=== PATIENT | female | born 1990 | race Caucasian/White ===

== ENCOUNTER 2017-09-28 13:25 | Emergency (ER) | payer OTHER ==
[2017-09-28] MEDS: IPRATROPIUM (NEB) 0.5 MG/2.5 ML AMP HHN (17:21)
[2017-09-28] MEDS: ALBUTEROL 0.083% (NEB) 2.5 MG/3 ML AMP HHN (17:21)
== END 2017-09-28 18:20 | disposition home or self-care (01) ==
LOC: FTE 13:25
DX: O21.9 Vomiting of pregnancy, unspecified (principal); R05 Cough; R50.9 Fever, unspecified; R06.02 Shortness of breath; O24.112 Pre-existing type 2 diabetes mellitus, in pregnancy, second trimester; O99.512 Diseases of the respiratory system complicating pregnancy, second trimester; J45.909 Unspecified asthma, uncomplicated; Z3A.24 24 weeks gestation of pregnancy; Z79.84 Long term (current) use of oral hypoglycemic drugs
CPT/HCPCS: 94664; 99284-25

== ENCOUNTER 2018-01-13 13:16 | Inpatient (IN) | payer OTHER ==
[2018-01-13] MEDS ORDERED: IBUPROFEN 600 MG TAB PO (13:30)
[2018-01-13] MEDS ORDERED: METHYLERGONOVINE 0.2 MG INJ IM (13:30)
[2018-01-13] MEDS ORDERED: OXYTOCIN 30 UNITS/LR 500 ML IV (13:30)
[2018-01-13] MEDS: LACTATED RINGER'S 1,000 ML IV ×2 (14:12→23:35)
[2018-01-13 14:14] LABS: ADD MAN DIFF? NO
[2018-01-13 14:16] LABS: WHITE BLOOD COUNT 6.2 10^3/ul (4.8-10.8)
[2018-01-13 14:17] LABS: BASOPHILS % 0.3 % (0.0-2.0); EOSINOPHILS # 0.1 10^3/ul (0.0-0.5); HEMOGLOBIN 10.7 g/dl (12.0-16.0); LYMPHOCYTES # 1.2 10^3/ul (0.8-2.9); LYMPHOCYTES % 20.1 % (15.0-51.0); MEAN CORPUSCULAR HEMOGLOBIN 29.6 pg (29.0-33.0); MEAN CORPUSCULAR HGB CONC 34.5 g/dl (32.0-37.0); MEAN CORPUSCULAR VOLUME 85.9 fl (82.0-101.0); MEAN PLATELET VOLUME 10.5 fl (7.4-10.4); MONOCYTE # 0.6 10^3/ul (0.3-0.9); MONOCYTES % 9.4 % (0.0-11.0); NEUTROPHIL # 4.3 10^3/ul (1.6-7.5); NEUTROPHILS % 68.7 % (39.0-77.0); PLATELET COUNT 253 10^3/UL (140-415); RED BLOOD COUNT 3.61 10^6/ul (4.20-5.40); RED CELL DISTRIBUTION WIDTH 13.6 % (11.5-14.5)
[2018-01-13 14:36] LABS: INR 0.88; PT RATIO 0.9
[2018-01-13 14:52] LABS: GLUCOSE 103 mg/dl (70-220)
[2018-01-13 16:31] LABS: HEPATITIS B SURFACE ANTIGEN NEGATIVE (NEGATIVE)
[2018-01-13] MEDS: DINOPROSTONE 10 MG VAG SUPP VAG (16:37)
[2018-01-13 17:17] LABS: RAPID PLASMA REAGIN NONREACTIVE (NR)
[2018-01-13] MEDS ORDERED: PROAIR HFA INHALER PO (20:30)
[2018-01-14] MEDS: OXYTOCIN 30 UNITS/LR 500 ML IV ×2 (01:19→22:14)
[2018-01-14] MEDS: DEXTROSE 5%-LR 1,000 ML IV ×3 (01:53→13:49)
[2018-01-14] MEDS: LACTATED RINGER'S 1,000 ML IV ×4 (01:53→22:39)
[2018-01-14] MEDS: ACETAMINOPHEN 500 MG TAB PO (04:39)
[2018-01-14 05:27] LABS: ADD MAN DIFF? NO
[2018-01-14 05:30] LABS: BASOPHILS % 0.2 % (0.0-2.0); EOSINOPHILS # 0.1 10^3/ul (0.0-0.5); EOSINOPHILS % 0.7 % (0.0-7.0); HEMATOCRIT 31.7 % (37.0-47.0); LYMPHOCYTES # 1.7 10^3/ul (0.8-2.9); LYMPHOCYTES % 20.3 % (15.0-51.0); MEAN CORPUSCULAR HGB CONC 34.7 g/dl (32.0-37.0); MEAN CORPUSCULAR VOLUME 86.4 fl (82.0-101.0); MEAN PLATELET VOLUME 10.4 fl (7.4-10.4); MONOCYTE # 0.7 10^3/ul (0.3-0.9); MONOCYTES % 8.4 % (0.0-11.0); NEUTROPHIL # 5.8 10^3/ul (1.6-7.5); NEUTROPHILS % 69.9 % (39.0-77.0); PLATELET COUNT 241 10^3/UL (140-415); RED BLOOD COUNT 3.67 10^6/ul (4.20-5.40); RED CELL DISTRIBUTION WIDTH 13.8 % (11.5-14.5)
[2018-01-14 05:30] LABS: WHITE BLOOD COUNT 8.3 10^3/ul (4.8-10.8)
[2018-01-14 05:49] LABS: INR 0.87; PARTIAL THROMBOPLASTIN TIME 24.4 Sec (25.0-35.0); PROTIME 11.9 Sec (11.9-14.9); PT RATIO 0.9
[2018-01-14 05:57] LABS: ALANINE AMINOTRANSFERASE 26 IU/L (13-69); ALBUMIN 3.1 g/dl (3.3-4.9); ALBUMIN/GLOBULIN RATIO 0.91; ALKALINE PHOSPHATASE 201 IU/L (42-121); ANION GAP 13 (8-16); ASPARTATE AMINO TRANSFERASE 21 IU/L (15-46); BILIRUBIN,INDIRECT 0.3 mg/dl (0-1.1); BILIRUBIN,TOTAL 0.3 mg/dl (0.2-1.3); BLOOD UREA NITROGEN 12 mg/dl (7-20); CALCIUM 8.9 mg/dl (8.4-10.2); CARBON DIOXIDE 18 mmol/L (21-31); CHLORIDE 111 mmol/L (97-110); CREATININE 0.48 mg/dl (0.44-1.00); GLUCOSE 87 mg/dl (70-220); POTASSIUM 3.9 mmol/L (3.5-5.1); SODIUM 138 mmol/L (135-144); TOTAL PROTEIN 6.5 g/dl (6.1-8.1)
[2018-01-14 06:41] LABS: ADD UMIC YES; UR ASCORBIC ACID NEGATIVE (NEGATIVE); UR BILIRUBIN (Dip) NEGATIVE (NEGATIVE); UR BLOOD (Dip) NEGATIVE (NEGATIVE); UR CLARITY CLEAR (CLEAR); UR COLOR YELLOW (YELLOW); UR GLUCOSE (Dip) NEGATIVE (NEGATIVE); UR KETONES (Dip) NEGATIVE (NEGATIVE); UR LEUKOCYTE ESTERASE (Dip) NEGATIVE Leu/ul (NEGATIVE); UR NITRITE (Dip) NEGATIVE (NEGATIVE); UR RBC 0 /HPF (0-5); UR SPECIFIC GRAVITY (Dip) 1.019 (1.003-1.030); UR SQUAMOUS EPITHELIAL CELL FEW /HPF (FEW); UR TOTAL PROTEIN (Dip) 2+ mg/dl (NEGATIVE); UR UROBILINOGEN (Dip) NEGATIVE (NEGATIVE); UR WBC 1 /HPF (0-5)
[2018-01-14 08:07] LABS: FIBRIN SPLIT PRODUCT <10 ug/ml (<10)
[2018-01-14] MEDS ORDERED: FENTAnyl 2MCG/ML-ROPIV 0.2% 100 ML (10:52)
[2018-01-14] MEDS ORDERED: NALOXONE (0.4 MG/ML) INJ IV ×4 (13:00→20:00)
[2018-01-14] MEDS ORDERED: DIPHENHYDRAMINE 50 MG INJ IV ×4 (13:00→20:00)
[2018-01-14] MEDS ORDERED: ONDANSETRON 4 MG INJ IV (13:00)
[2018-01-14] MEDS: FENTAnyl 2MCG/ML-ROPIV 0.2% 100 ML BAG EPI ×3 (13:50→22:19)
[2018-01-14] MEDS: ONDANSETRON 4 MG INJ IV (18:12)
[2018-01-14] MEDS ORDERED: morphine 2 MG INJ IV (20:00)
[2018-01-14] MEDS ORDERED: KETOROLAC 30 MG INJ IV (20:00)
[2018-01-14] MEDS: MAGNESIUM SULFATE 4 GM/100 ML 100 ML IVPB ×2 (20:26)
[2018-01-14] MEDS: MAGNESIUM SULFATE 20 GM/500 ML 500 ML IV (20:57)
[2018-01-15] MEDS: MINERAL OIL LIGHT 10 ML VIAL TOP
[2018-01-15] MEDS: ONDANSETRON 4 MG INJ IV (00:41)
[2018-01-15 00:59] LABS: MAGNESIUM 4.3 mg/dl (1.7-2.5)
[2018-01-15] MEDS: DEXTROSE 5%-LR 1,000 ML IV (01:02)
[2018-01-15] MEDS: FENTAnyl 2MCG/ML-ROPIV 0.2% 100 ML BAG EPI ×4 (03:04→15:46)
[2018-01-15] MEDS: PROAIR HFA INHALER PO (04:22)
[2018-01-15] MEDS: BUTORPHANOL 2 MG INJ IV ×2 (04:42→19:29)
[2018-01-15] MEDS: MAGNESIUM SULFATE 20 GM/500 ML 500 ML IV ×2 (06:26→16:14)
[2018-01-15 07:45] LABS: MAGNESIUM 5.2 mg/dl (1.7-2.5)
[2018-01-15] MEDS ORDERED: AMPICILLIN 2 GM/NS (PMX) 100 ML (08:24)
[2018-01-15] MEDS: AMPICILLIN 2 GM/NS (PMX) 100 ML IV (08:30)
[2018-01-15 12:38] LABS: MAGNESIUM 5.8 mg/dl (1.7-2.5)
[2018-01-15] MEDS: AMPICILLIN 1 GM/NS (PMX) 50 ML IV ×2 (13:19→17:03)
[2018-01-15] MEDS: LACTATED RINGER'S 1,000 ML IV (17:04)
[2018-01-15] MEDS: MISOPROSTOL 200 MCG TAB PR (19:24)
[2018-01-15] MEDS: OXYTOCIN 30 UNITS/LR 500 ML IV ×3 (19:27→20:00)
[2018-01-15] MEDS: LIDOCAINE 1% (MPF) 30 ML INJ INJ ×2 (19:28)
[2018-01-15] MEDS: CARBOPROST 250 MCG INJ IM (19:40)
[2018-01-15] MEDS ORDERED: INSULIN REGULAR, HUMAN 100 UNIT/1 ML 3ML VIAL IVP (19:44)
[2018-01-15] MEDS ORDERED: DEXTROSE 50% 50 ML SYRINGE IV (20:00)
[2018-01-15] MEDS: CEFAZOLIN 2 GM/50 ML (PMX) 50 ML IVPB (20:13)
[2018-01-15] MEDS: INSULIN REGULAR, HUMAN 100 UNIT/1 ML 3ML VIAL SC (20:35)
[2018-01-15] MEDS ORDERED: OXYCODONE/ASPIRIN (4.88/325) TAB PO ×2 (22:30)
[2018-01-15] MEDS ORDERED: WITCH HAZEL/GLYCERIN PAD PR (22:30)
[2018-01-15] MEDS ORDERED: ZOLPIDEM 5 MG TAB PO (22:30)
[2018-01-15] MEDS ORDERED: LANOLIN 7 GM TUBE TOP (22:30)
[2018-01-15] MEDS ORDERED: OXYTOCIN 30 UNITS/LR 500 ML IV (22:30)
[2018-01-15] MEDS ORDERED: METHYLERGONOVINE 0.2 MG INJ IM (22:30)
[2018-01-15] MEDS ORDERED: CARBOPROST 250 MCG INJ IM (22:30)
[2018-01-15] MEDS ORDERED: BENZOCAINE 20% 56 ML SPRAY TOP (22:30)
[2018-01-15] MEDS ORDERED: MISOPROSTOL 200 MCG TAB PR (22:30)
[2018-01-15] MEDS: ACETAMINOPHEN 325 MG TAB PO (22:41)
[2018-01-15] MEDS ORDERED: ACETAMINOPHEN 325 MG TAB PO (23:00)
[2018-01-15 23:58] LABS: WHITE BLOOD COUNT 25.7 10^3/ul (4.8-10.8)
[2018-01-15 23:58] LABS: ABNORMAL IP MESSAGE 1; HEMATOCRIT 26.3 % (37.0-47.0); MEAN CORPUSCULAR HEMOGLOBIN 29.9 pg (29.0-33.0); MEAN CORPUSCULAR HGB CONC 34.2 g/dl (32.0-37.0); MEAN CORPUSCULAR VOLUME 87.4 fl (82.0-101.0); MEAN PLATELET VOLUME 10.1 fl (7.4-10.4); PLATELET COUNT 237 10^3/UL (140-415); RED BLOOD COUNT 3.01 10^6/ul (4.20-5.40); RED CELL DISTRIBUTION WIDTH 13.9 % (11.5-14.5)
[2018-01-16 00:03] LABS: ADD MAN DIFF? YES; PATH REVIEW? YES; POSITIVE DIFF @See below
[2018-01-16 00:20] LABS: MAGNESIUM 4.3 mg/dl (1.7-2.5)
[2018-01-16] MEDS: IBUPROFEN 600 MG TAB PO ×5 (00:22→23:46)
[2018-01-16] MEDS: INSULIN REGULAR, HUMAN 100 UNIT/1 ML 3ML VIAL SC (00:27)
[2018-01-16] MEDS: LACTATED RINGER'S 1,000 ML IV ×2 (00:56→11:11)
[2018-01-16] MEDS: MAGNESIUM SULFATE 20 GM/500 ML 500 ML IV (00:59)
[2018-01-16] MEDS ORDERED: D5W IVPB (01:00)
[2018-01-16] MEDS ORDERED: MAGNESIUM SULFATE IVPB (01:00)
[2018-01-16 01:19] LABS: BAND NEUTROPHILS #M 4.1 10^3/ul (0.0-0.6); BAND NEUTROPHILS % (M) 16 % (0-4); LYMPHOCYTES #M 0.5 10^3/ul (0.8-2.9); LYMPHOCYTES % (M) 2 % (15-51); MONOCYTES % (M) 8 % (0-11); PLATELET ESTIMATE NORMAL; SEG NEUT #M 20.1 10^3/ul (1.6-7.5); SEGMENTED NEUTROPHILS (M) % 74 % (39-77)
[2018-01-16] MEDS ORDERED: ACCU-CHEK XX ×2 (02:00)
[2018-01-16] MEDS: CEFAZOLIN 2 GM/50 ML (PMX) 50 ML IVPB ×3 (03:45→20:07)
[2018-01-16] MEDS ORDERED: CEFAZOLIN 2 GM/50 ML (PMX) 50 ML IVPB (04:00)
[2018-01-16] MEDS: ACCU-CHEK XX ×4 (08:26→20:08)
[2018-01-16 08:41] LABS: ADD MAN DIFF? NO
[2018-01-16 08:46] LABS: ABNORMAL IP MESSAGE 1; BASOPHILS % 0.2 % (0.0-2.0); EOSINOPHILS % 0.1 % (0.0-7.0); HEMATOCRIT 21.7 % (37.0-47.0); HEMOGLOBIN 7.4 g/dl (12.0-16.0); LYMPHOCYTES % 10.8 % (15.0-51.0); MEAN CORPUSCULAR HEMOGLOBIN 29.7 pg (29.0-33.0); MEAN CORPUSCULAR HGB CONC 34.1 g/dl (32.0-37.0); MEAN CORPUSCULAR VOLUME 87.1 fl (82.0-101.0); MEAN PLATELET VOLUME 10.6 fl (7.4-10.4); NEUTROPHIL # 14.1 10^3/ul (1.6-7.5); NEUTROPHILS % 77.5 % (39.0-77.0); PLATELET COUNT 214 10^3/UL (140-415); RED BLOOD COUNT 2.49 10^6/ul (4.20-5.40); RED CELL DISTRIBUTION WIDTH 14.2 % (11.5-14.5)
[2018-01-16 08:46] LABS: WHITE BLOOD COUNT 18.2 10^3/ul (4.8-10.8)
[2018-01-16 08:48] LABS: POSITIVE DIFF @See below
[2018-01-16] MEDS: SENNA/DOCUSATE NA (8.6MG/50MG) TAB PO ×2 (09:03→21:56)
[2018-01-16 09:04] LABS: MAGNESIUM 4.3 mg/dl (1.7-2.5)
[2018-01-16 12:59] LABS: MAGNESIUM 4.2 mg/dl (1.7-2.5)
[2018-01-16 19:13] LABS: MAGNESIUM 4.1 mg/dl (1.7-2.5)
[2018-01-16] MEDS: MAGNESIUM HYDROXIDE 30ML CUP PO (21:56)
[2018-01-17] MEDS: CEFAZOLIN 2 GM/50 ML (PMX) 50 ML IVPB ×2 (04:24→12:00)
[2018-01-17] MEDS: IBUPROFEN 600 MG TAB PO ×2 (06:00→12:00)
[2018-01-17 08:34] LABS: MAGNESIUM 2.7 mg/dl (1.7-2.5)
[2018-01-17] MEDS: SENNA/DOCUSATE NA (8.6MG/50MG) TAB PO (09:00)
[2018-01-17] MEDS: DIPHTH/TET/ACEL PERTUSS (ADULT) 0.5 ML VIAL IM* (09:00)
[2018-01-17] MEDS: MAGNESIUM HYDROXIDE 30ML CUP PO (09:00)
[2018-01-17] MEDS: ACCU-CHEK XX ×3 (09:16→13:50)
[2018-01-17 12:23] LABS: MAGNESIUM 2.5 mg/dl (1.7-2.5)
== END 2018-01-17 18:50 | disposition home or self-care (01) | DRG 775 ==
LOC: L-D 13:16 → PP1 01-15 22:54
PROVIDERS: Obstetrics & Gynecology
PROC: 10E0XZZ Delivery of Products of Conception, External Approach (ICD-10-PCS; principal; 2018-01-14)
PROC: 0DQR0ZZ Repair Anal Sphincter, Open Approach (ICD-10-PCS; 2018-01-14)
PROC: 3E033VJ Introduction of Other Hormone into Peripheral Vein, Percutaneous Approach (ICD-10-PCS; 2018-01-14)
DX: O99.214 Obesity complicating childbirth (principal); E66.01 Morbid (severe) obesity due to excess calories; Z68.37 Body mass index [BMI] 37.0-37.9, adult; O24.429 Gestational diabetes mellitus in childbirth, unspecified control; O70.20 Third degree perineal laceration during delivery, unspecified; Z3A.39 39 weeks gestation of pregnancy; Z37.0 Single live birth
CPT/HCPCS: 62319; 76815; 80053; 81001; 82947; 82962; 83735; 84560; 85025; 85362; 85384; 85610; 85730; 86592; 86850; 86900; 86901; 87340; 88307; 99464